=== PATIENT | male | born 1955 | race Caucasian/White ===

== ENCOUNTER → 2017-03-28 | Outpatient (CLI) | payer BC ==
[~2017-03-28] MED LIST: ALLEGRA DPS180 MG PO; ANTIVERT-DPS25 MG PO; ASA CHILDREN'S81 MG PO; ATORVASTATIN CA40 MG PO; BYSTOLIC10 MG PO; DIOVAN320 MG PO; GLUCOPHAGE-DPS500 MG PO; KEFLEX-DPS500 MG PO; KLOR-CON M2020 ME1 PO; LYRICA25 MG PO; NORVASC5 MG PO; PROBIOTIC1 EAC1 PO; PROTONIX40 MG PO; REQUIP DPS0.5 MG PO; WELLBUTRIN XL300 MG PO; ZOFRAN4 MG PO; ZYLOPRIM-DPS300 MG PO
== END | disposition home or self-care (01) ==
LOC: RAD.S 14:10
DX: N64.4 Mastodynia (principal); N63 Unspecified lump in breast

== ENCOUNTER 2017-04-13 04:41 | Inpatient (IN) | payer BC ==
[~2017-04-13] VITALS: Ht 180.3 cm; Wt 120.7 kg
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
--- NOTE | 2017-04-16 06:36 | CO ---
ADMIT: 04/13/2017 RM/LOC: 423 [facility] MR#: [id number] ACC#: [id number] [address] [address] PATTIE DANG [address] [place], [place] [address] Consultation SEX: M AGE: 61 : 1955 DATE OF CONSULTATION: 04/14/2017 ATTENDING PHYSICIAN: Gio Noriega MD CONSULTING PHYSICIAN: Marshall Diaz MD CHIEF COMPLAINT: Dizziness. HISTORY OF PRESENT ILLNESS: Mr. Dang presents to [facility] with acute onset of vertiginous-type dizziness. It is not associated with hearing loss. He has no peripheral, motor, or sensory neurologic changes. It was associated with nausea and one episode of vomiting. He has not had past history of similar episodes. His present medicines and past medical history are well summarized in chart. PHYSICAL EXAMINATION: HEENT: Ear canals, TMs, and middle ears are clear. No middle ear effusion or inflammation. Nose, mouth, pharynx clear. Pupils are equal. Conjunctivae clear. Frenzel lens exam shows a spontaneous right- beating nystagmus. He has no subjective hearing change or hearing loss in either ear. IMAGING DATA: Review of data; MRI scan shows inflammation within the right mastoid. No intracranial abnormalities that suggest vascular accident, bleed, tumor mass, and no middle ear effusion. IMPRESSION: Acute onset of vertigo with nausea most consistent with acute labyrinthitis. RECOMMENDATION: He is presently on labyrinthine suppressants including meclizine 25 mg q.i.d. He states his symptoms are gradually improving. He does not feel as vertiginous as yesterday, but is not yet able to maintain self mobilization etc. I suspect the inflammation found within the right mastoid does not represent cause of the inner ear inflammation and is incidental finding. ADMIT: 04/13/2017 RM/LOC: 423 [facility] MR#: [id number] [address] [facility] [address] [place] [address] PATTIE DANG [address] [place], [place] [address] Consultation SEX: M AGE: 61 : 1955 RECOMMENDATION: I discussed with the patient acute labyrinthitis and treatment, which at this time includes continuation of labyrinthine suppressant therapy. I anticipate gradual resolution of the acute vertigo within the next 3-5 days that would allow him to self-motivate and care for self, but will likely require 8-10 weeks for complete resolution. During this time, he should continue labyrinthine suppressants, may gradually reduce the frequency of the dosages as his symptoms allow. If no improvement within the next 3-4 weeks, he will return to ENT. In light of the normal intra-cranium found on MRI scan, I did not feel further diagnostic studies required at this time. Marshall Diaz MD/ leah JOB #: [id number] CC: Gio Noriega MD, Attending Physician Gio Noriega MD, Family Physician
[2017-04-16] MEDS ORDERED: LYRICA25 MG PO (16:50)
[2017-04-16] MEDS ORDERED: ATORVASTATIN CA40 MG PO (16:50)
[2017-04-16] MEDS ORDERED: NORVASC5 MG PO (16:51)
[2017-04-16] MEDS ORDERED: KLOR-CON M2020 ME1 PO (16:51)
[2017-04-16] MEDS ORDERED: GLUCOPHAGE-DPS500 MG PO (16:51)
[2017-04-16] MEDS ORDERED: REQUIP DPS0.5 MG PO (16:51)
[2017-04-16] MEDS ORDERED: DIOVAN320 MG PO (16:52)
[2017-04-16] MEDS ORDERED: ZYLOPRIM-DPS300 MG PO (16:52)
[2017-04-16] MEDS ORDERED: PROTONIX40 MG PO (16:52)
[2017-04-16] MEDS ORDERED: WELLBUTRIN XL300 MG PO (16:52)
[2017-04-16] MEDS ORDERED: BYSTOLIC10 MG PO (16:53)
[2017-04-16] MEDS ORDERED: ALLEGRA DPS180 MG PO (16:53)
[2017-04-16] MEDS ORDERED: ASA CHILDREN'S81 MG PO (16:53)
[2017-04-16] MEDS ORDERED: PROBIOTIC1 EAC1 PO (16:53)
[2017-04-16] MEDS ORDERED: ANTIVERT-DPS25 MG PO (16:54)
[2017-04-16] MEDS ORDERED: ZOFRAN4 MG PO (16:54)
[2017-04-16] MEDS ORDERED: KEFLEX-DPS500 MG PO (16:55)
--- NOTE | 2017-04-28 10:41 | HP ---
ADMIT: 04/13/2017 RM/LOC: 423 [facility] MR#: [id number] [facility]#: [id number] [address] [address] PATTIE SANTOS [address] [place] [address] History and Physical SEX: M AGE: 61 : 1955 DATE OF SERVICE: CHIEF COMPLAINT: Intractable nausea and vomiting. HISTORY OF PRESENT ILLNESS: Pattie is a very nice 61-year-old man who is well known to my service. He does have a history of coronary artery disease, type 2 diabetes, hypertension, hyperlipidemia, as well as he is recovering alcoholic. 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 He had been getting along quite well. He woke up about 8 a.m. yesterday morning, and he did have a bit of vertigo. The vertigo did come and go throughout the day. He took some [id number] medications, and there are times he was good. There are times, it was persistent. Toward the end of the evening in the afternoon, he just had increased vomiting and inability to maintain good p.o. Therefore, he presented to the emergency department in the [facility] hours. He was evaluated by Dr. Akhtar. He did have a noncontrast head CT, which was unremarkable as well as some unremarkable basic laboratories. He contacted me for admission to rule out a cerebellar stroke. The patient was not initiated on the stroke scale immediately. I do request that he ordered the MRI and have this obtained prior to admission to ensure that we do have a stroke ruled in or ruled out. We do obtain the MRI and that is unremarkable except for some mastoid fluid. I evaluated the patient at his bedside. He is resting quietly. He did receive some IV Phenergan and so is a bit tired. He has a wash-rag on his forehead. He is not vomiting. He is finally able to obtain some rest. He endorses the above history and his is at the bedside as well. He denies any photophobia. He denies any phonophobia. He has no neck pain. He has no stiffness, and he has no previous fevers and no headaches or anything like that. No previous respiratory illnesses. This was pretty much coming out of nowhere yesterday morning. Also, states that when he crosses his arms, turns his head to his right and lies back, that is causing most of his symptoms. Not so much to the other side. That did exacerbate his symptoms. He has been taking all of his medications and no recent head trauma nothing out the ordinary. PAST MEDICAL HISTORY: 1. Allergic rhinitis. 2. Anxiety. 3. Depression. 4. Coronary artery disease. 5. Type 2 diabetes mellitus. 6. Gout. 7. Essential hypertension. 8. Hyperlipidemia. 9. Restless legs syndrome. 10.Vitamin D deficiency. 11.History of alcoholism. 12.Attention deficit disorder. ADMIT: 04/13/2017 RM/LOC: 423 [facility] MR#: [id number] [address] [address] PATTIE SANTOS [address] [place] [address] History and Physical SEX: M AGE: 61 : 1955 13.History of PCI. MEDICATIONS: 1. Allopurinol. 2. Amlodipine. 3. Aspirin. 4. Atorvastatin. 5. Benzoyl peroxide. 6. Bupropion. 7. Vitamin D. 8. Cinnamon bark. 9. Pepcid. 10.Fexofenadine. 11.Glucosamine. 12.Drug study medication. 13.Metformin. 14.Multivitamin. 15.Bystolic. 16.Lawrence 3. 17.Protonix. 18.Potassium. 19.Requip. 20.Spironolactone. ALLERGIES: NO KNOWN MEDICAL ALLERGIES. FAMILY HISTORY: Reviewed and noncontributory. SOCIAL HISTORY: He does not do drugs. He does not use alcohol. He is recovering. He does smoke some. He is . He is retired, and he is very happy man. REVIEW OF SYSTEMS: Reviewed per HPI. PHYSICAL EXAMINATION: VITAL SIGNS: Blood pressure is 120/71, pulse is 62, respiratory rate is 16, temperature is 97.2, 95% on room air. GENERAL: He is alert and oriented x3. No acute distress. He is a little bit somnolent due to the antiemetics. He has been vomiting, and so he felt a little bit of a hoarse voice. HEENT: Normocephalic, atraumatic. Extraocular muscles are intact. Pupils equally round and responsive to light. No nasal discharge. NECK: Supple. HEART: Regular rhythm. LUNGS: Clear to auscultation. ABDOMEN: Soft and nontender. EXTREMITIES: No clubbing or cyanosis. NEURO: No focal deficits. Cranial nerves II-XII grossly intact. LABORATORY AND X-RAY DATA: White blood cells are 8.5, hemoglobin is 14.7, and ADMIT: 04/13/2017 RM/LOC: 423 [facility] MR#: [id number] [address] [place] [address] PATTIE SANTOS [address] [place] [address] History and Physical SEX: M AGE: 61 : 1955 platelets 175. INR is 1.02. Blood glucose 142, potassium is 3.7, chloride is 107. Bicarb is 27, BUN is 11, creatinine is 1, blood glucose 154, calcium is 8.5, total protein 6.8, albumin is 4, AST is 22, ALT is 46, alkaline phosphatase is 90, bilirubin is 1.5. CT head negative. MRI, right mastoid fluid. Chest x-ray normal. ASSESSMENT AND PLAN: 1. Intractable nausea and vomiting. 2. Vertigo suspect benign paroxysmal positional vertigo. 3. Right mastoid fluid questionable mastoiditis with his associated symptoms. We will go ahead and start him on ceftriaxone. 4. Type 2 diabetes mellitus. We will hold most of his chronic regimen and place him on some intermittent dosing. 5. Anxiety and depression. Maintain him on his psychotropic medications. 6. Prophylaxis, maintain him on SCDs and LINDY hose. For the time being, we will get him up and walk him around and the patient will be a full code. I discussed this plan with the patient, expressed understanding, was in agreement, and had no further questions. Gio Noriega MD/ leah JOB #: [id number] CC: Gio Noriega, Attending Physician Gio Noriega, Family Physician
--- NOTE | 2017-04-28 17:26 | DS ---
ADMIT: 04/13/2017 RM/LOC: 423 [facility] MR#: [id number] [address] [address] PATTIE SANTOS [address] [place] [address] Discharge Summary SEX: M AGE: 61 : 1955 ADMISSION DATE: 04/13/2017 DISCHARGE DATE: 04/15/2017 CONSULTATIONS: Marshall Diaz MD FINAL DIAGNOSES: 1. Intractable nausea and vomiting. 2. Labyrinthitis. 3. Vertigo. REASON FOR ADMISSION: Please see H and P. However, briefly, Pattie is admitted to the service of [facility] with initial concern for a stroke. However, this is ruled out in the ER. He does receive ENT consultation secondary to some mastoid fluid. HOSPITAL COURSE: Admitted to the service of [facility] under the care of myself, Gio Noriega MD. Received appropriate evaluation for his vertigo, intractable nausea and vomiting, diagnosed with labyrinthitis, and he is discharged to home to follow up in clinic and with ENT. DISPOSITION: Home. DISCHARGE CONDITION: Stable. DISCHARGE MEDICATIONS: See medication reconciliation, it is reviewed and accurate. DISCHARGE INSTRUCTIONS: Discharge to home on the above medication regimen and follow up with Michelle Conway APRN, in my office in one weeks' time. I discussed the plan with the patient, he expressed understanding, was in agreement, and had no further questions. Gio Noriega MD/ ajf JOB #: [id number] CC: Gio Noriega MD, Attending Physician Gio Noriega MD, Family Physician
== END 2017-04-15 11:00 | disposition home or self-care (01) | DRG 149 ==
LOC: ER 04:41 → 4PCU 06:13
PROVIDERS: ADMIT Internal Medicine
DX: H83.09 Labyrinthitis, unspecified ear (principal); I10 Essential (primary) hypertension; R42 Dizziness and giddiness; R11.2 Nausea with vomiting, unspecified; I25.10 Atherosclerotic heart disease of native coronary artery without angina pectoris; E11.9 Type 2 diabetes mellitus without complications; E78.5 Hyperlipidemia, unspecified; F17.200 Nicotine dependence, unspecified, uncomplicated; F10.21 Alcohol dependence, in remission; J30.9 Allergic rhinitis, unspecified; F41.9 Anxiety disorder, unspecified; F32.9 Major depressive disorder, single episode, unspecified; G25.81 Restless legs syndrome; F98.8 Other specified behavioral and emotional disorders with onset usually occurring in childhood and adolescence; M10.9 Gout, unspecified; Z98.61 Coronary angioplasty status; Z79.82 Long term (current) use of aspirin; Z82.49 Family history of ischemic heart disease and other diseases of the circulatory system; Z95.5 Presence of coronary angioplasty implant and graft; Z79.84 Long term (current) use of oral hypoglycemic drugs